=== PATIENT | male | born 1945 | race Caucasian/White ===

== ENCOUNTER 2019-08-25 00:57 | Emergency (ER) | payer MEDICARE ==
[~2019-08-25] VITALS: Ht 180.3 cm; Wt 86.0 kg
[~2019-08-25 00:57] MED LIST: ATOR40TA PO
[2019-08-25 01:10] VITALS: BP 137/77
--- NOTE | 2019-08-25 01:30 | PHYS DOC ---
Past Medical History Past Medical History: Arthritis Past Surgical History: Appendectomy Smoking Status: Current Every Day Smoker Alcohol Use: None Drug Use: None General Adult EDM: Chief Complaint: MULTIPLE COMPLAINTS HPI: HPI: Patient is a 74 year old male who presents with report of fever and body aches for the last few days. Patient states that he had a fever of 101.4 on Friday. He rates the body aches is moderate. He does indicate that he has a mild cough but states that he has not been short of breath. He also reports that his stools have been a little bit softer than usual but he is taking vitamin C every day. Patient is here wanting a COVID screening. [] Review of Systems: Review of Systems: Constitutional: Positive fever and chills. [] Respiratory: Admits to mild cough without shortness of breath. [] Cardiovascular: Denies chest pain or edema. [] GI: Denies abdominal pain, nausea, vomiting, bloody stools or diarrhea. [] Neurologic: Denies headache, focal weakness or sensory changes. [] Heart Score: Risk Factors: Risk Factors: DM, Current or recent (<one month) smoker, HTN, HLP, family history of CAD, obesity. Risk Scores: Score 0 - 3: 2.5% MACE over next 6 weeks - Discharge Home Score 4 - 6: 20.3% MACE over next 6 weeks - Admit for Clinical Observation Score 7 - 10: 72.7% MACE over next 6 weeks - Early Invasive Strategies Allergies: Allergies: Allergies Coded Allergies Type Severity Reaction Last Updated Verified No Known Drug Allergies 04/05/15 No Physical Exam: PE: Constitutional: Well developed, well nourished, no acute distress, non-toxic appearance. [] HENT: Normocephalic, atraumatic, bilateral external ears normal, oropharynx moist, no oral exudates, nose normal. [] Cardiovascular: Regular rate and rhythm [] Lungs & Thorax: Bilateral breath sounds clear to auscultation [] Skin: Warm, dry, no erythema, no rash. [] EKG: EKG: [] Radiology/Procedures: Radiology/Procedures: [] Course & Med Decision Making: Course & Med Decision Making Pertinent Labs and Imaging studies reviewed. (See chart for details) [] Dragon Disclaimer: Dragon Disclaimer: This electronic medical record was generated, in whole or in part, using a voice recognition dictation system. Departure Departure Impression: Primary Impression: Viral illness Disposition: 01 HOME, SELF-CARE Condition: STABLE Referrals: AMANDA TESFAYE MD (PCP) Patient Instructions: Form - Excuse from Work, School, or Physical Activity, Viral Syndrome Additional Instructions: You may follow-up as an outpatient to one of the drive-through [facility] screening facilities. ALVARO HARDY Jr. DO August 25, 2019 01:30
== END 2019-08-25 01:39 | disposition home or self-care (01) ==
LOC: ER 00:57
DX: B34.9 Viral infection, unspecified (principal); F17.200 Nicotine dependence, unspecified, uncomplicated
CPT/HCPCS: 99281